=== PATIENT | male | born 1990 | race African-American/Black ===

== ENCOUNTER 2017-10-13 09:33 | Emergency (ER) | payer SELFPAY ==
[~2017-10-13] VITALS: Ht 182.9 cm; Wt 110.0 kg
[2017-10-13 09:38] VITALS: BP 110/70
== END 2017-10-13 11:38 | disposition left against medical advice (07) ==
LOC: ER 09:45
DX: Z53.21 Procedure and treatment not carried out due to patient leaving prior to being seen by health care provider (principal)

== ENCOUNTER 2019-08-25 00:22 | Emergency (ER) | payer SELFPAY ==
[~2019-08-25] VITALS: Ht 167.6 cm; Wt 91.0 kg
[2019-08-25] MEDS ORDERED: SODIUM CHLORIDE 0.9% 1,000 ML IV ONE (02:02)
[2019-08-25] MEDS ORDERED: ONDANSETRON HCL 4MG/2ML INJ IV STA (02:02)
[2019-08-25 02:21] LABS: BASOPHILS % 0.6 % (0.0-2.0); EOSINOPHILS % 0.1 % (0.0-5.0); HEMATOCRIT. 53.4 % (42.0-52.0); HEMOGLOBIN. 17.9 g/dL (14.0-18.0); LYMPHOCYTES % 11.5 % (20.0-50.0); MEAN CORPUSCULAR HEMOGLOBIN 28.6 pg (28.0-32.0); MEAN CORPUSCULAR VOLUME 85.5 fL (80.0-94.0); MEAN PLATELET VOLUME 7.7 fl (7.4-10.4); MONOCYTES % 4.3 % (2.0-8.0); NEUTROPHILS % 83.5 % (40.0-76.0); PLATELET 327 x1000/uL (130-400); RED BLOOD CELL COUNT 6.24 mill/uL (4.7-6.1); RED CELL DISTRIBUTION WIDTH 14.7 % (11.6-14.6)
[2019-08-25 02:27] LABS: CHLORIDE 95 mEq/L (98-107)
[2019-08-25 03:02] LABS: CLARITY URINE CLEAR (CLEAR); COLOR URINE YELLOW (YELLOW); KETONES URINE 4+ (NEGATIVE); LEUKOCYTE ESTERASE URINE NEGATIVE (NEGATIVE); NITRITE URINE NEGATIVE (NEGATIVE); OCCULT BLOOD URINE NEGATIVE (NEGATIVE); PH URINE >=9.0 (4.5-8.0); PROTEIN URINE 1+ (NEGATIVE); SPECIFIC GRAVITY URINE 1.032 (1.005-1.030)
[2019-08-25] MEDS ORDERED: ONDANSETRON HCL 4MG/2ML INJ IV ONE (04:15)
[2019-08-25 04:24] VITALS: BP 139/92
== END 2019-08-25 04:44 | disposition home or self-care (01) ==
LOC: ER 00:35
DX: E86.0 Dehydration (principal); R11.2 Nausea with vomiting, unspecified; F12.10 Cannabis abuse, uncomplicated; F17.210 Nicotine dependence, cigarettes, uncomplicated; Z88.6 Allergy status to analgesic agent
CPT/HCPCS: 36415; 80053; 81003; 83690; 85025; 96361; 96374; 96376; 99283; J2405; J7030

== ENCOUNTER 2023-08-01 09:43 | Emergency (ER) | payer SELFPAY ==
[~2023-08-01] VITALS: Ht 172.7 cm; Wt 74.0 kg
[2023-08-01 09:46] VITALS: BP 107/73; RESP 20; TEMP 98.1; O2SAT 100
[2023-08-01 09:49] VITALS: PULSE 63
[2023-08-01] MEDS ORDERED: NALO4SPR BOTHNSTRLS ×3 (10:06→11:52)
[2023-08-01] MEDS ORDERED: BUPR1FIL3 SL ×3 (10:06→11:52)
[2023-08-01] MEDS ORDERED: ONDA4TAB50 PO ×3 (10:08→11:52)
[2023-08-01] MEDS ORDERED: ONDANSETRON HCL 4MG TABLET PO ONE (10:15)
[2023-08-01 10:20] LABS: BASOPHILS % 0.2 % (0.0-2.0); EOSINOPHILS % 1.3 % (0.0-5.0); HEMOGLOBIN. 15.3 g/dL (14.0-18.0); LYMPHOCYTES % 28.1 % (20.0-50.0); MEAN CORPUSCULAR HEMOGLOBIN 28.9 pg (28.0-32.0); MEAN CORPUSCULAR HGB CONC 31.9 g/dL (31.0-37.0); MEAN CORPUSCULAR VOLUME 90.4 fL (80.0-94.0); MEAN PLATELET VOLUME 7.2 fl (7.4-10.4); MONOCYTES % 7.2 % (2.0-8.0); NEUTROPHILS % 63.2 % (40.0-76.0); PLATELET 289 x1000/uL (130-400); RED CELL DISTRIBUTION WIDTH 15.3 % (11.6-14.6); WHITE BLOOD COUNT 16.4 x1000/uL (4.5-11.0)
[2023-08-01 10:44] LABS: CLARITY URINE CLEAR (CLEAR); COLOR URINE YELLOW (YELLOW); GLUCOSE URINE NEGATIVE (NEGATIVE); KETONES URINE NEGATIVE (NEGATIVE); LEUKOCYTE ESTERASE URINE NEGATIVE (NEGATIVE); NITRITE URINE NEGATIVE (NEGATIVE); OCCULT BLOOD URINE NEGATIVE (NEGATIVE); PH URINE 5.5 (4.5-8.0); PROTEIN URINE NEGATIVE (NEGATIVE)
[2023-08-01 11:22] LABS: ALANINE AMINOTRANSFERASE 19 IU/L (10-49); ALBUMIN 4.2 g/dL (3.2-4.8); ASPARTATE AMINOTRANSFERASE 19 IU/L (<34); BILIRUBIN TOTAL 0.4 mg/dL (0.1-1.0); CALCIUM 9.2 mg/dL (8.7-10.4); CARBON DIOXIDE 26 mEq/L (21-32); CHLORIDE 106 mEq/L (98-107); GLUCOSE 97 mg/dL (70-105); POTASSIUM 4.2 mEq/L (3.5-5.1); PROTEIN TOTAL 7.7 g/dL (6.0-8.3); SODIUM 141 mEq/L (136-145); UREA NITROGEN BLOOD 10 mg/dL (9-23)
== END 2023-08-01 11:36 | disposition home or self-care (01) ==
LOC: ER 09:43
DX: F11.10 Opioid abuse, uncomplicated (principal); F12.90 Cannabis use, unspecified, uncomplicated; Z88.6 Allergy status to analgesic agent; Z88.8 Allergy status to other drugs, medicaments and biological substances
CPT/HCPCS: 36415; 80053; 81003; 85025; 99283

== ENCOUNTER 2023-09-20 13:21 | Emergency (ER) | payer SELFPAY ==
[~2023-09-20] VITALS: Ht 175.3 cm; Wt 72.0 kg
[~2023-09-20 13:21] MED LIST: BUPR1FIL3 SL; NALO4SPR BOTHNSTRLS; ONDA4TAB50 PO
[2023-09-20 13:30] VITALS: BP 139/95; PULSE 94; RESP 20; TEMP 98.4; O2SAT 99
[2023-09-20 16:43] LABS: CLARITY URINE CLEAR (CLEAR); COLOR URINE YELLOW (YELLOW); GLUCOSE URINE NEGATIVE (NEGATIVE); KETONES URINE NEGATIVE (NEGATIVE); LEUKOCYTE ESTERASE URINE NEGATIVE (NEGATIVE); NITRITE URINE NEGATIVE (NEGATIVE); OCCULT BLOOD URINE 3+ (NEGATIVE); PH URINE 5.5 (4.5-8.0); PROTEIN URINE 2+ (NEGATIVE); SPECIFIC GRAVITY URINE 1.023 (1.005-1.030)
[2023-09-20] MEDS: KETOROLAC 30MG/ML VIAL IM ONE (16:53)
[2023-09-20] MEDS: METHOCARBAMOL 500MG TABLET PO ONE (16:53)
[2023-09-20 16:55] LABS: SQUAMOUS EPITHELIAL CELL URINE RARE /lpf (RARE/1+)
[2023-09-20 16:56] LABS: BACTERIA URINE 2+
[2023-09-20 16:57] LABS: WBC URINE NONE SEEN /hpf (0-2)
[2023-09-20] MEDS ORDERED: IBUP-2029 MT (18:11)
[2023-09-20] MEDS ORDERED: METH-653 MT (18:12)
[2023-09-24 04:09] LABS: CHLAMYDIA TRACHOMATIS NAA Negative (Negative); NEISSERIA GONORRHOEAE NAA Negative (Negative)
== END 2023-09-20 18:22 | disposition home or self-care (01) ==
LOC: ER 13:42
DX: S33.5XXA Sprain of ligaments of lumbar spine, initial encounter (principal); F12.90 Cannabis use, unspecified, uncomplicated; F11.90 Opioid use, unspecified, uncomplicated; Z88.6 Allergy status to analgesic agent; Z88.8 Allergy status to other drugs, medicaments and biological substances; X58.XXXA Exposure to other specified factors, initial encounter; Y93.89 Activity, other specified; Y92.89 Other specified places as the place of occurrence of the external cause; Y99.8 Other external cause status
CPT/HCPCS: 99283; 87491; 87591; 81003; 96372; J1885

== ENCOUNTER 2023-09-21 21:54 | Emergency (ER) | payer MEDICAID ==
[~2023-09-21] VITALS: Ht 172.7 cm; Wt 79.0 kg
[~2023-09-21 21:54] MED LIST changes: +IBUP-2029 MT; +METH-653 MT
[2023-09-21 22:01] VITALS: BP 159/91; PULSE 108; RESP 16; TEMP 98.7; O2SAT 100
== END 2023-09-22 01:21 | disposition left against medical advice (07) ==
LOC: ER 21:54
DX: R10.9 Unspecified abdominal pain (principal); Z88.6 Allergy status to analgesic agent; Z88.8 Allergy status to other drugs, medicaments and biological substances; Z79.899 Other long term (current) drug therapy
CPT/HCPCS: 99281